=== PATIENT | male | born 1985 | race Caucasian/White ===

== ENCOUNTER → 2016-11-26 | Outpatient (CLI) | payer OTHER ==
[~2016-11-26] MED LIST: NONE PER PT; RANI75TA12 PO
== END ==
LOC: STAR 13:18
PROVIDERS: ATTEND Surgery
DX: Z02.9 Encounter for administrative examinations, unspecified (principal)

== ENCOUNTER 2016-12-10 08:20 | Day surgery (SDC) | payer OTHER ==
[~2016-12-10] VITALS: Ht 182.9 cm; Wt 102.0 kg
[2016-12-10] MEDS ORDERED: LIDOCAINE 1%, 2ML ONE (08:37)
[2016-12-10] MEDS ORDERED: LACTATED RINGERS 1,000 ML IV SCH (08:50)
[2016-12-10 08:51] VITALS: BP 118/78
[2016-12-10] MEDS ORDERED: EPINEPHRINE 1 MG/ML, 1ML ONE (10:00)
[2016-12-10] MEDS ORDERED: KETOROLAC 30 MG/1 ML ONE (10:12)
[2016-12-10] MEDS ORDERED: ROCURONIUM 10 MG/ML ONE (10:12)
[2016-12-10] MEDS ORDERED: DEXAMETHASONE 4 MG/ML, 1ML ONE (10:12)
[2016-12-10] MEDS ORDERED: GLYCOPYRROLATE 0.2MG/1ML ONE (10:12)
[2016-12-10] MEDS ORDERED: PROPOFOL 10 MG/ML, 20ML ONE (10:12)
[2016-12-10] MEDS ORDERED: CEFOTETAN 2 GM ONE (10:12)
[2016-12-10] MEDS ORDERED: ONDANSETRON 2MG/ML, 2ML ONE (10:12)
[2016-12-10] MEDS ORDERED: NEOSTIGMINE 1 MG/ML, 10ML ONE (10:12)
[2016-12-10] MEDS ORDERED: ONDANSETRON 2MG/ML, 2ML IVPush PRN ×2 (10:30→11:00)
[2016-12-10] MEDS ORDERED: ACETAMINOPHEN 325 MG TABLET PO PRN (10:30)
[2016-12-10] MEDS ORDERED: PROMETHAZINE 25 MG/ML, 1ML IV PRN (10:30)
[2016-12-10] MEDS ORDERED: METOCLOPRAMIDE 5 MG/ML, 2ML IV PRN (10:30)
[2016-12-10] MEDS ORDERED: OXYcodone 5 MG/5 ML ORAL.SOL UDC PO PRN ×2 (10:30→11:00)
[2016-12-10] MEDS ORDERED: HYDROmorphone 1 MG/ML, 1ML IV PRN (10:30)
[2016-12-10] MEDS ORDERED: MEPERIDINE/PF 25MG/0.5ML IVPush PRN (10:30)
[2016-12-10] MEDS ORDERED: BUPIVACAINE/PF 0.25% INFIL ONE (10:35)
[2016-12-10] MEDS ORDERED: HYDROmorphone 2 MG/ML, 1ML IVPush PRN (11:00)
[2016-12-10] MEDS ORDERED: OXYcodone 5 MG/5 ML ORAL.SOL UDC ONE (11:11)
[2016-12-10] MEDS ORDERED: FENTANYL PF 100 MCG/2ML ONE (11:26)
[2016-12-10] MEDS: FENTANYL PF 100 MCG/2ML IV PRN ×2 (11:28→11:37)
== END 2016-12-10 13:10 ==
LOC: OUT 08:20
PROVIDERS: ATTEND Surgery
DX: K81.1 Chronic cholecystitis (principal); E78.00 Pure hypercholesterolemia, unspecified; I10 Essential (primary) hypertension; Z87.891 Personal history of nicotine dependence
CPT/HCPCS: 47562; 88304; J0171; J1100; J1885; J2250; J2405; J2704; J2710; J3010; J3490; J7120; S0074

== ENCOUNTER → 2017-09-05 | Outpatient (CLI) | payer OTHER ==
[2017-09-05 10:02] LABS: BASOPHILS # (AUTO) 0.03 x10^3/uL (0-0.1); BASOPHILS % (AUTO) 1 % (0-1); EOSINOPHILS # (AUTO) 0.13 x10^3/uL (0-0.4); EOSINOPHILS % (AUTO) 3 % (1-7); LYMPHOCYTES # (AUTO) 2.31 x10^3/uL (1-3.4); LYMPHOCYTES % (AUTO) 49 % (22-44); MD NO; MEAN CORPUSCULAR HEMOGLOBIN 31.5 pg (27.5-34.5); MEAN CORPUSCULAR HGB CONC 34.3 g/dL (33.2-36.2); MEAN CORPUSCULAR VOLUME 91.7 fL (81-97); MEAN PLATELET VOLUME 8.4 fL (7.4-10.4); MONOCYTES # (AUTO) 0.45 x10^3/uL (0.2-0.8); MONOCYTES % (AUTO) 10 % (2-9); NEUTROPHILS # (AUTO) 1.82 x10^3/uL (1.8-6.8); NEUTROPHILS % (AUTO) 38 % (42-75); PLATELET COUNT 279 x10^3/uL (130-400); RED BLOOD COUNT 5.14 x10^6/uL (4.38-5.82); RED CELL DISTRIBUTION WIDTH 13.4 % (9.4-14.8)
[2017-09-05 10:10] LABS: ALANINE AMINOTRANSFERASE 28 U/L (12-78); ANION GAP 5 mmol/L (5-15); CHLORIDE 108 mmol/L (98-107); CHOLESTEROL, TOTAL 221 mg/dL (140-239); CREATININE 1.13 mg/dL (0.7-1.3)
[2017-09-05 10:13] LABS: ALKALINE PHOSPHATASE 55 U/L (45-117); BILIRUBIN,TOTAL 1.1 mg/dL (0.2-1.0); CHOL/HDL RATIO 5.4; HDL CHOL % 19 % (26-37); HDL CHOLESTEROL (DIRECT) 41 mg/dL (40-60); LDL CHOLESTEROL,CALCULATED 157 mg/dL (54-169); LDL/HDL RATIO 3.8 (0.5-3.0); TOTAL PROTEIN 7.3 g/dL (6.4-8.2); TRIGLYCERIDES 117 mg/dL (50-200); VLDL CHOLESTEROL 23 mg/dL (0-25)
== END ==
LOC: LAB 09:44
PROVIDERS: ATTEND Surgery
DX: Z00.00 Encounter for general adult medical examination without abnormal findings (principal)
CPT/HCPCS: 36415; 80053; 80061; 85025

== ENCOUNTER → 2020-02-18 | Outpatient (CLI) | payer OTHER ==
[~2020-02-18] MED LIST changes: +RANI-244 PO; -RANI75TA12 PO
[2020-02-18 10:57] LABS: BASOPHILS # (AUTO) 0.02 x10^3/uL (0-0.1); BASOPHILS % (AUTO) 0 % (0-1); EOSINOPHILS % (AUTO) 2 % (1-7); LYMPHOCYTES # (AUTO) 1.74 x10^3/uL (1-3.4); LYMPHOCYTES % (AUTO) 35 % (22-44); MD NO; MEAN CORPUSCULAR HEMOGLOBIN 30.6 pg (27.5-34.5); MEAN CORPUSCULAR HGB CONC 32.9 g/dL (33.2-36.2); MEAN CORPUSCULAR VOLUME 92.8 fL (81-97); MEAN PLATELET VOLUME 7.8 fL (7.4-10.4); MONOCYTES # (AUTO) 0.42 x10^3/uL (0.2-0.8); MONOCYTES % (AUTO) 9 % (2-9); NEUTROPHILS # (AUTO) 2.66 x10^3/uL (1.8-6.8); NEUTROPHILS % (AUTO) 54 % (42-75); PLATELET COUNT 310 x10^3/uL (130-400); RED BLOOD COUNT 5.02 x10^6/uL (4.38-5.82); RED CELL DISTRIBUTION WIDTH 13.9 % (9.4-14.8)
[2020-02-18 11:07] LABS: ANION GAP 4 mmol/L (5-15); CALCIUM 9.1 mg/dL (8.5-10.1); CHLORIDE 107 mmol/L (98-107)
[2020-02-18 11:20] LABS: ALANINE AMINOTRANSFERASE 31 U/L (12-78); ALKALINE PHOSPHATASE 56 U/L (45-117); BILIRUBIN,TOTAL 0.8 mg/dL (0.2-1.0); CHOLESTEROL, TOTAL 220 mg/dL (140-239); CREATININE 1.02 mg/dL (0.7-1.3); HDL CHOL % 20 % (26-37); HDL CHOLESTEROL (DIRECT) 44 mg/dL (40-60); LDL CHOLESTEROL,CALCULATED 152 mg/dL (54-169); LDL/HDL RATIO 3.5 (0.5-3.0); TOTAL PROTEIN 7.5 g/dL (6.4-8.2); TRIGLYCERIDES 120 mg/dL (50-200); VLDL CHOLESTEROL 24 mg/dL (0-25)
== END | disposition home or self-care (01) ==
LOC: LAB 10:38
PROVIDERS: ATTEND Nurse Practitioner Family
DX: Z13.220 Encounter for screening for lipoid disorders (principal); Z00.01 Encounter for general adult medical examination with abnormal findings; Z13.228 Encounter for screening for other metabolic disorders; E78.2 Mixed hyperlipidemia; J30.2 Other seasonal allergic rhinitis; K21.9 Gastro-esophageal reflux disease without esophagitis; K58.0 Irritable bowel syndrome with diarrhea; Z68.29 Body mass index [BMI] 29.0-29.9, adult
CPT/HCPCS: 36415; 80053; 80061; 82306; 83036; 84443; 85025